=== PATIENT | female | born 1935 ===

== ENCOUNTER 2017-12-12 07:49 | Emergency (ER) | payer MEDICARE ==
[2017-12-12 07:54] VITALS: BP 157/54; PULSE 73; RESP 17; TEMP 98.7; O2SAT 96
[2017-12-12] MEDS ORDERED: Acetaminophen-Codeine 300/30 mg Tab PO STA (08:29)
--- NOTE | 2017-12-12 08:41 | ED PDOC ---
Lower Extremity Pain/Injury Time Seen by Provider: 12/12/17 08:04 Chief Complaint (Nursing): Lower Extremity Problem/Injury Chief Complaint (Provider): Right leg injury History Per: Patient History/Exam Limitations: no limitations Onset/Duration Of Symptoms: Days (7 days ago) Current Symptoms Are (Timing): Still Present Additional Complaint(s): 82 y/o female with a history of hypertension and high cholesterol, presents to the ED following a right knee and ankle pain, onset of 2 days ago. Patient reports of jumping out of a stationary vehicle and twisted her ankle, roughly a week ago. She states that she is able to ambulate with pain and that she took a 400mg Ibuprofen yesterday w/o relief. Past Medical History Reviewed: Historical Data, Nursing Documentation, Vital Signs Vital Signs: Last Vital Signs Temp 98.7 F 12/12/17 07:53 Pulse 73 12/12/17 07:53 Resp 17 12/12/17 07:53 BP 157/54 H 12/12/17 07:53 Pulse Ox 96 12/12/17 07:53 - Medical History PMH: Bronchitis (frequent episodes), HTN, Hypercholesterolemia - Surgical History Surgical History: Cholecystectomy, Hernia Repair - Family History Family History: States: Unknown Family Hx - Social History Current smoker - smoking cessation education provided: No Ex-Smoker (has not smoked in the last 12 months): No Alcohol: None Drugs: Denies - Immunization History Hx Tetanus Toxoid Vaccination: No Hx Influenza Vaccination: No Hx Pneumococcal Vaccination: No - Home Medications Home Medications: Ambulatory Orders Medication Instructions Recorded Albuterol 0.5% [Albuterol 0.5% 3 ml IH Q4 PRN #0 neb 01/30/15 Inhal Tessie (2.5 mg/0.5 ml) UD] Amoxicillin/Clavulanate [Augmentin 1 tab PO BID #20 tab 01/30/15 875 MG-125 MG] Benzonatate [Tessalon Perles] 100 mg PO Q8 PRN #30 sgl 01/30/15 Amoxicillin/Clavulanate Pota 1 tab PO BID #14 tab 09/30/15 [Augmentin 875 mg-125 mg] Neomycin/Polymyxin/Dexamethaso 1 ml LEFTEYE Q4 #1 bottle 09/30/15 [Dexamethasone/Neomycin/Polymyxin 5 Ml] Famotidine [Pepcid] 20 mg PO DAILY #5 tab 04/26/16 Methylprednisolone [Medrol] 4 mg PO TITR #1 unit 04/26/16 Atropine/Diphenoxylate [Lonox 2 tab PO TID PRN #30 tab 12/11/16 0.025 MG-2.5 MG] Dicyclomine [Bentyl] 20 mg PO BID PRN #30 tab 12/11/16 Saccharomyces Boulardi [Florastor] 500 mg PO BID #28 cap 12/11/16 Ibuprofen [Motrin] 600 mg PO Q6H PRN #20 tab 12/12/17 - Allergies Allergies/Adverse Reactions: Allergies Allergy/AdvReac Type Severity Reaction Status Date / Time No Known Allergies Allergy Verified 01/30/15 12:11 Review of Systems ROS Statement: Except As Marked, All Systems Reviewed And Found Negative Constitutional: Negative for: Fever Musculoskeletal: Positive for: Leg Pain (right knee and right ankle pain) Physical Exam - Reviewed Nursing Documentation Reviewed: Yes Vital Signs Reviewed: Yes - Physical Exam Appears: Positive for: Non-toxic, No Acute Distress Head Exam: Positive for: ATRAUMATIC Skin: Positive for: Normal Color, Warm Eye Exam: Positive for: Normal appearance ENT: Positive for: Normal ENT Inspection Neck: Positive for: Normal Cardiovascular/Chest: Positive for: Regular Rate, Rhythm. Negative for: Murmur Respiratory: Positive for: Normal Breath Sounds. Negative for: Respiratory Distress Pulses-Dorsalis Pedis (L): 2+ Pulses-Dorsalis Pedis (R): 2+ Back: Positive for: Normal Inspection Extremity: Positive for: Tenderness (to right popliteal fossa and right anterior ankle), Other (sensation intact; ms 5/5). Negative for: Normal ROM ( decrease rom at knee secondary to apin), Pedal Edema (appreciable edema) Neurologic/Psych: Positive for: Alert, Oriented. Negative for: Motor/Sensory Deficits - ECG O2 Sat by Pulse Oximetry: 96 (RA) Pulse Ox Interpretation: Normal Medical Decision Making Medical Decision Making: Time: --08:28 Impression: --Right Leg injury Plan: --MRI lower ext any joint rt --Acetaminophen/ Codeine 1 tab pO Reassess --09:49 --PROCEDURE: MRI Right Knee FINDINGS: ANTERIOR CRUCIATE LIGAMENT:: Subtotal ACL tear with minimal residual ligament noted anteriorly. This may be a chronic finding. POSTERIOR CRUCIATE LIGAMENT:: Intact. MEDIAL MENISCUS:: Degenerative intrameniscal signal change identified in the body of the medial meniscus. The body medial meniscus has also migrated medially with large osteophytes. LATERAL MENISCUS:: Gross deformity is identified including minimal residual body, posterior margins anterior horn, and anterolateral margins of the posterior horn suggest longstanding postoperative change or gross, chronic tear and degenerative loss of the body of the lateral meniscus MEDIAL COLLATERAL LIGAMENT:: No acute tear identified. LATERAL COLLATERAL LIGAMENT COMPLEX:: Sprain or partial tear medial fibers medial collateral ligament complex. QUADRICEPS TENDON:: No acute tear identified. PATELLAR TENDON:: No acute tear identified. CARTILAGE:: Advanced chondromalacia in all 3 joint compartments compatible with advanced osteoarthritis. JOINT FLUID:: Limited joint effusions seen medially and laterally as well as minimally at the suprapatellar bursa. OSSEOUS STRUCTURES:: Tricompartmental osteophytic derangement but particularly at the lateral femorotibial compartment. No fracture or bone contusion appreciated. OTHER FINDINGS: A small lateral popliteal cyst cysts is appreciate with localized patchy fluid suggestive of partial rupture. IMPRESSION: 1. Subtotal ACL tear, potentially chronic. 2. Partial tear or prominent sprain lateral collateral ligament complex. 3. Advanced osteoarthritis, tricompartmental. 4. Partial rupture of small popliteal cyst at the lateral popliteal fossa. --11:50 PROCEDURE: MRI Right Ankle FINDINGS: ANTERIOR EXTENSOR TENDONS: No definite acute tear.. MEDIAL FLEXOR TENDONS: No definite acute tear. Limited tenosynovitis is suspected involving the flexor hallucis longus tendon. PERONEAL TENDONS: No definite acute tear. ANTERIOR INFERIOR TIBIOFIBULAR (SYNDESMOSIS): Intact.. POSTERIOR INFERIOR TIBIOFIBULAR (SYNDESMOSIS): Intact. ANTERIOR TALOFIBULAR LIGAMENT: Intact. POSTERIOR TALOFIBULAR LIGAMENT: Intact. PLANTAR FASCIA: No acute reactive changes are appreciated with to the plantar fascia however appears thickened posteriorly which could reflect an element of plantar fasciitis. Clinically correlate further. SINUS TARSI: Normal. ACHILLES TENDON: Normal intrinsic signal is seen throughout the Achilles tendon. Trace fluid is seen in the fat anterior to the tendon which is of uncertain origin/ significance. DELTOID LIGAMENT COMPLEX - DEEP: Intact without acute tear.. CALCANEOFIBULAR LIGAMENT: Intact acute tear.. SPRING (PLANTAR CALCANEO-NAVICULAR) LIGAMENT: Intact without acute tear. BONES: Normal marrow signal. CARTILAGE: There is prominent chondromalacia seen involving oral midfoot and hindfoot joints as well as cortical sclerosis and occasional osteophytosis.. JOINT FLUID: Limited fluid is seen posterior to the talocalcaneal joint. MUSCLES: Normal. OTHER FINDINGS: None . IMPRESSION: 1. Mild tenosynovitis flexor hallucis longus tendon. 2. Moderate multifocal degenerative joint disease throughout the midfoot hindfoot and ankle joints. 3. Potential plantar fasciitis. --12:25 copy of imaging report has been given to the patient. --12:32 Patient reports of improvements of symptoms and is stable for discharge home. Knee immobilizer placed. Copy of imaging report given to patient. Scribe Attestation: Documented by Luis Fernando Montiel acting as a scribe for Karina Woodson MD. Disposition - Clinical Impression Clinical Impression: ACL tear, Tear of lateral collateral ligament of right knee - Disposition Referrals: Ruel Oliva III, MD [Staff Provider] - Jaron Thompson MD [Primary Care Provider] - Disposition: Routine/Home Disposition Time: 12:32 Condition: STABLE Prescriptions: Ibuprofen [Motrin] 600 mg PO Q6H PRN #20 tab PRN Reason: Pain, Moderate (4-7) Instructions: Knee Sprain (ED), ACL Injury (ED), Knee Immobilizer (ED) Forms: [employer] (Malawian) Print Language: TAMAZIGHT
--- NOTE | 2017-12-12 09:51 | MRI ---
PROCEDURE: MRI Right Knee HISTORY: Pain. COMPARISON: None available. TECHNIQUE: Multiecho multiplanar sequences were performed through the left knee. FINDINGS: ANTERIOR CRUCIATE LIGAMENT:: Subtotal ACL tear with minimal residual ligament noted anteriorly. This may be a chronic finding. POSTERIOR CRUCIATE LIGAMENT:: Intact. MEDIAL MENISCUS:: Degenerative intrameniscal signal change identified in the body of the medial meniscus. The body medial meniscus has also migrated medially with large osteophytes. LATERAL MENISCUS:: Gross deformity is identified including minimal residual body, posterior margins anterior horn, and anterolateral margins of the posterior horn suggest longstanding postoperative change or gross, chronic tear and degenerative loss of the body of the lateral meniscus MEDIAL COLLATERAL LIGAMENT:: No acute tear identified. LATERAL COLLATERAL LIGAMENT COMPLEX:: Sprain or partial tear medial fibers medial collateral ligament complex. QUADRICEPS TENDON:: No acute tear identified. PATELLAR TENDON:: No acute tear identified. CARTILAGE:: Advanced chondromalacia in all 3 joint compartments compatible with advanced osteoarthritis. JOINT FLUID:: Limited joint effusions seen medially and laterally as well as minimally at the suprapatellar bursa. OSSEOUS STRUCTURES:: Tricompartmental osteophytic derangement but particularly at the lateral femorotibial compartment. No fracture or bone contusion appreciated. OTHER FINDINGS: A small lateral popliteal cyst cysts is appreciate with localized patchy fluid suggestive of partial rupture. IMPRESSION: 1. Subtotal ACL tear, potentially chronic. 2. Partial tear or prominent sprain lateral collateral ligament complex. 3. Advanced osteoarthritis, tricompartmental. 4. Partial rupture of small popliteal cyst at the lateral popliteal fossa.
--- NOTE | 2017-12-12 11:51 | MRI ---
PROCEDURE: MRI Right Ankle HISTORY: Pain. COMPARISON: None available. TECHNIQUE: Multiecho multiplanar sequences were performed through the right ankle without the use of intravenous contrast. FINDINGS: ANTERIOR EXTENSOR TENDONS: No definite acute tear.. MEDIAL FLEXOR TENDONS: No definite acute tear. Limited tenosynovitis is suspected involving the flexor hallucis longus tendon. PERONEAL TENDONS: No definite acute tear. ANTERIOR INFERIOR TIBIOFIBULAR (SYNDESMOSIS): Intact.. POSTERIOR INFERIOR TIBIOFIBULAR (SYNDESMOSIS): Intact. ANTERIOR TALOFIBULAR LIGAMENT: Intact. POSTERIOR TALOFIBULAR LIGAMENT: Intact. PLANTAR FASCIA: No acute reactive changes are appreciated with to the plantar fascia however appears thickened posteriorly which could reflect an element of plantar fasciitis. Clinically correlate further. SINUS TARSI: Normal. ACHILLES TENDON: Normal intrinsic signal is seen throughout the Achilles tendon. Trace fluid is seen in the fat anterior to the tendon which is of uncertain origin/significance. DELTOID LIGAMENT COMPLEX - DEEP: Intact without acute tear.. CALCANEOFIBULAR LIGAMENT: Intact acute tear.. SPRING (PLANTAR CALCANEO-NAVICULAR) LIGAMENT: Intact without acute tear. BONES: Normal marrow signal. CARTILAGE: There is prominent chondromalacia seen involving oral midfoot and hindfoot joints as well as cortical sclerosis and occasional osteophytosis.. JOINT FLUID: Limited fluid is seen posterior to the talocalcaneal joint. MUSCLES: Normal. OTHER FINDINGS: None . IMPRESSION: 1. Mild tenosynovitis flexor hallucis longus tendon. 2. Moderate multifocal degenerative joint disease throughout the midfoot hindfoot and ankle joints. 3. Potential plantar fasciitis. .
--- NOTE | 2017-12-12 12:17 | US ---
PROCEDURE: Right lower extremity venous duplex Doppler. HISTORY: RLE pain/swelling COMPARISON: None available. TECHNIQUE: Common femoral, superficial femoral, popliteal and posterior tibial veins were evaluated. Flow was assessed with color Doppler, compressibility, assessment of phasic flow and augmentation response. FINDINGS: COMMON FEMORAL VEIN: Unremarkable. SUPERFICIAL FEMORAL VEIN: Unremarkable. POPLITEAL VEIN: Unremarkable. POSTERIOR TIBIAL VEIN: Unremarkable. OTHER FINDINGS: None. IMPRESSION: No evidence of deep venous thrombosis in the right lower extremity.
== END 2017-12-12 12:40 | disposition home or self-care (01) ==
LOC: SUPCPDRO 07:49 → H.ER 07:49
DX: S83.511A Sprain of anterior cruciate ligament of right knee, initial encounter (principal); W19.XXXA Unspecified fall, initial encounter; Y92.89 Other specified places as the place of occurrence of the external cause; E78.00 Pure hypercholesterolemia, unspecified; I10 Essential (primary) hypertension; M19.071 Primary osteoarthritis, right ankle and foot; M65.9 Synovitis and tenosynovitis, unspecified

== ENCOUNTER 2018-04-26 12:20 | Emergency (ER) | payer MEDICARE ==
[2018-04-26 12:42] VITALS: O2SAT 96
[2018-04-26] MEDS ORDERED: Albuterol 0.083% Inhal Sol (2.5 mg/3 mL) UD INH ONE (13:53)
[2018-04-26] MEDS ORDERED: Albuterol 0.083% Inhal Sol (2.5 mg/3 mL) UD ONE (14:06)
--- NOTE | 2018-04-26 14:09 | ED PDOC ---
HPI: CCC, URI, Sore Throat Time Seen by Provider: 04/26/18 13:00 Chief Complaint (Nursing): Cough, Cold, Congestion Chief Complaint (Provider): Cough, sore throat History Per: Patient History/Exam Limitations: no limitations Have you had recent travel within the past 21 days to any of the following countries: [place], [place], [place] or [place]?: No Onset/Duration Of Symptoms: Days (5) Current Symptoms Are (Timing): Still Present Associated Symptoms: Sore Throat, Cough, Sputum. denies: Fever, Chills, Vomiting Additional History Per: Patient Additional Complaint(s): 82yo female with history of bronchitis, seasonal allergies, presents to ER for evaluation of a cough for the past 5 days. She reports a productive cough with yellow/green sputum; also reports a mild sore throat. She denies any fever, chills, chest pain, shortness of breath, post-tussive vomiting. She offers no other medical complaints. PMD: Jaron Thompson Past Medical History Reviewed: Historical Data, Nursing Documentation, Vital Signs Vital Signs: Last Vital Signs Temp 99.6 F 04/26/18 16:11 Pulse 79 04/26/18 16:11 Resp 18 04/26/18 16:11 BP 137/56 L 04/26/18 16:11 Pulse Ox 96 04/26/18 16:11 - Medical History PMH: Bronchitis (frequent episodes), HTN, Hypercholesterolemia - Surgical History Surgical History: Cholecystectomy, Hernia Repair - Family History Family History: States: No Known Family Hx, Unknown Family Hx - Social History Current smoker - smoking cessation education provided: No Ex-Smoker (has not smoked in the last 12 months): No Alcohol: None Drugs: Denies - Immunization History Hx Tetanus Toxoid Vaccination: No Hx Influenza Vaccination: No Hx Pneumococcal Vaccination: No - Home Medications Home Medications: Ambulatory Orders Medication Instructions Recorded Albuterol HFA [Ventolin HFA 90 1 - 2 puff IH Q4H PRN #1 bottle 04/26/18 mcg/actuation (8 g)] Azithromycin [Zithromax] 250 mg PO DAILY #6 tab 04/26/18 - Allergies Allergies/Adverse Reactions: Allergies Allergy/AdvReac Type Severity Reaction Status Date / Time No Known Allergies Allergy Verified 04/26/18 12:38 Review of Systems ROS Statement: Except As Marked, All Systems Reviewed And Found Negative Constitutional: Negative for: Fever, Chills Cardiovascular: Negative for: Chest Pain Respiratory: Positive for: Cough, Sputum. Negative for: Shortness of Breath Gastrointestinal: Negative for: Vomiting Physical Exam - Reviewed Nursing Documentation Reviewed: Yes Vital Signs Reviewed: Yes - Physical Exam Appears: Positive for: Non-toxic (no respiratory distress. speaking in full sentences. airway intact.), No Acute Distress Head Exam: Positive for: ATRAUMATIC, NORMAL INSPECTION, NORMOCEPHALIC Skin: Positive for: Normal Color Eye Exam: Positive for: Normal appearance ENT: Positive for: Other (moist mucosa). Negative for: Pharyngeal Erythema, Tonsillar Exudate, Tonsillar Swelling Neck: Positive for: Normal, Supple Cardiovascular/Chest: Positive for: Regular Rate, Rhythm Respiratory: Positive for: Normal Breath Sounds. Negative for: Rales, Rhonchi, Wheezing Gastrointestinal/Abdominal: Positive for: Soft. Negative for: Tenderness Extremity: Negative for: Pedal Edema Neurologic/Psych: Positive for: Alert, Oriented. Negative for: Motor/Sensory Deficits - Laboratory Results Result Diagrams: 04/26/18 14:06 04/26/18 14:06 - ECG O2 Sat by Pulse Oximetry: 96 (RA) Pulse Ox Interpretation: Normal Medical Decision Making Medical Decision Making: Impression: Cough rule out pneumonia Plan: -- CXR -- Labs -- Albuterol 2.5mg INH -- Rapid Strep Time: 1517 CXR FINDINGS: LUNGS: Interval aeration is improved at the bilateral bases. No active pulmonary disease. PLEURA: No significant pleural effusion identified. No pneumothorax apparent. CARDIOVASCULAR: Normal. OSSEOUS STRUCTURES: Old healed rib fractures reiterated at the mid to inferior right ribs laterally. VISUALIZED UPPER ABDOMEN: Normal. OTHER FINDINGS: None. IMPRESSION: No interval acute cardiopulmonary disease appreciable this time. Multiple old healed fractures reiterated right mid to inferior chest Time: 1540 Labs reviewed and shows mildly elevated WBC. Rapid strep test negative. Patient reports feeling better after the albuterol treatment. Patient to be discharge home with prescription for ZPack, albuterol and instructed to follow up with her PMD in 2-3 days. pts oxygen sat is good and she feels well in no respiratory distress. Scribe Attestation: Documented by Nicki Neal, acting as a scribe for Vanesa Hsieh MD. Provider Attestation: All medical record entries made by the Scribe were at my direction and personally dictated by me. I have reviewed the chart and agree that the record accurately reflects my personal performance of the history, physical exam, medical decision making, and the department course for this patient. I have also personally directed, reviewed, and agree with the discharge instructions and disposition. Disposition - Clinical Impression Clinical Impression: Chronic cough - Patient ED Disposition Is Patient to be Admitted: No Counseled Patient/Family Regarding: Studies Performed, Diagnosis, Need For Followup, Rx Given - Disposition Referrals: [facility] [Outside] [facility] [Outside] Disposition: Routine/Home Disposition Time: 15:25 Condition: IMPROVED Additional Instructions: follow up with your primary doctor in 1-2 days for reevaluation return to the ED with any worsening or concerning symptoms such as shortness of breath or chest pain Prescriptions: Albuterol HFA [Ventolin HFA 90 mcg/actuation (8 g)] 1 - 2 puff IH Q4H PRN #1 bottle PRN Reason: Wheezing Azithromycin [Zithromax] 250 mg PO DAILY #6 tab Instructions: Acute Bronchitis, Adult (DC) Forms: [employer] ([place]er)
[2018-04-26 14:13] LABS: BASO # 0.1 K/uL (0.0-0.2); BASO % 0.9 % (0.0-2.0); EOS # 0.4 K/uL (0.0-0.7); EOS % 2.8 % (0.0-4.0); HEMOGLOBIN 11.9 g/dL (12.0-16.0); LYMPH # 1.8 K/uL (1.0-4.3); LYMPH % 13.2 % (20.0-40.0); MEAN CELL VOLUME 80.8 fl (81.0-99.0); MEAN CORPUSCULAR HEMOGLOBIN 27.8 pg (27.0-31.0); MEAN CORPUSCULAR HGB CONC 34.4 g/dL (33.0-37.0); MEAN PLATELET VOLUME 9.1 fl (7.2-11.7); MONO # 1.1 K/uL (0.0-0.8); MONO % 8.6 % (0.0-10.0); NEUT # 9.9 K/uL (1.8-7.0); NEUT % 74.5 % (50.0-75.0); NRBC % 0.2 % (0.0-0.0); RBC 4.27 Mil/uL (3.80-5.20); RED CELL DISTRIBUTION WIDTH 13.9 % (11.5-14.5); WHITE BLOOD COUNT 13.3 K/uL (4.8-10.8)
[2018-04-26 14:23] LABS: ALB/GLOB RATIO 1.1 (1.0-2.1); ALBUMIN 3.8 g/dL (3.5-5.0); ALT/SGPT 23 U/L (9-52); AST/SGOT 17 U/L (14-36); BLOOD UREA NITROGEN 18 mg/dl (7-17); CALCIUM 9.2 mg/dL (8.4-10.2); GFR AFRICAN-AMERICAN > 60; GFR NON-AFRICAN AMERICAN > 60
--- NOTE | 2018-04-26 15:19 | RAD ---
HISTORY: cough COMPARISON: No prior. TECHNIQUE: Chest PA and lateral FINDINGS: LUNGS: Interval aeration is improved at the bilateral bases. No active pulmonary disease. PLEURA: No significant pleural effusion identified. No pneumothorax apparent. CARDIOVASCULAR: Normal. OSSEOUS STRUCTURES: Old healed rib fractures reiterated at the mid to inferior right ribs laterally. VISUALIZED UPPER ABDOMEN: Normal. OTHER FINDINGS: None. IMPRESSION: No interval acute cardiopulmonary disease appreciable this time. Multiple old healed fractures reiterated right mid to inferior chest
[2018-04-26 16:12] VITALS: BP 137/56; PULSE 79; RESP 18; TEMP 99.6
== END 2018-04-26 16:24 | disposition home or self-care (01) ==
LOC: H.ER 12:20
DX: R05 Cough (principal); I10 Essential (primary) hypertension; Z87.891 Personal history of nicotine dependence; E78.00 Pure hypercholesterolemia, unspecified

== ENCOUNTER 2019-01-12 10:25 | Emergency (ER) | payer MEDICARE ==
[2019-01-12 10:31] VITALS: BMI 30.2
--- NOTE | 2019-01-12 11:31 | ED PDOC ---
Lower Extremity Pain/Injury Time Seen by Provider: 01/12/19 10:55 Chief Complaint (Nursing): Lower Extremity Problem/Injury History Per: Patient Additional Complaint(s): Pt. states for the past 3 days she's had atraumatic R heel pain. States the few days prior to the onset of pain she walked more than usual. Pt. reports that she is an avid walker and walks approximately 1 mile/day. Denies fever, trauma, rash, hx of DM, ulcers, numbness, tingling. Past Medical History Reviewed: Historical Data, Nursing Documentation, Vital Signs Vital Signs: Last Vital Signs Temp 98.4 F 01/12/19 10:32 Pulse 77 01/12/19 10:32 Resp 20 01/12/19 10:32 BP 165/75 H 01/12/19 10:32 Pulse Ox 97 01/12/19 10:32 - Medical History PMH: Bronchitis (frequent episodes), HTN, Hypercholesterolemia - Surgical History Surgical History: Cholecystectomy, Hernia Repair - Family History Family History: States: No Known Family Hx - Immunization History Hx Tetanus Toxoid Vaccination: No Hx Influenza Vaccination: No Hx Pneumococcal Vaccination: No - Home Medications Home Medications: Ambulatory Orders Medication Instructions Recorded Meloxicam [Mobic] 7.5 mg PO DAILY PRN #7 tab 01/12/19 - Allergies Allergies/Adverse Reactions: Allergies Allergy/AdvReac Type Severity Reaction Status Date / Time No Known Allergies Allergy Verified 04/26/18 12:38 Review of Systems ROS Statement: Except As Marked, All Systems Reviewed And Found Negative Musculoskeletal: Positive for: Foot Pain Physical Exam - Physical Exam Appears: Positive for: Well, Non-toxic, No Acute Distress Skin: Positive for: Normal Color, Warm. Negative for: Rash Eye Exam: Positive for: Normal appearance Pulses-Dorsalis Pedis (L): 2+ Pulses-Dorsalis Pedis (R): 2+ Extremity: Positive for: Other (R heel with mild tenderness and swelling without deformity, warmth, erythema, or lesions). Negative for: Calf Tenderness (b/l) Neurologic/Psych: Positive for: Alert, Oriented (x3) - ECG O2 Sat by Pulse Oximetry: 97 - Progress ED Course And Treament: R foot x-ray ordered. Offered pain meds but refused. Informed of x-ray results and advised to f/u with podiatry clinic. Also told to take Mobic PRN pain on a full stomach. Disposition - Clinical Impression Clinical Impression: Heel spur - Patient ED Disposition Is Patient to be Admitted: No - Disposition Referrals: Podiatry Clinic [Outside] Disposition: Routine/Home Disposition Time: 11:15 Condition: STABLE Additional Instructions: FOLLOW UP WITH [employer] APPLICATION DEV SPECIALIST FOR FURTHER EVALUATION RETURN TO ED IMMEDIATELY IF SYMPTOMS WORSEN BRETTTHERESE BUTTERFIELDO, thank you for letting us take care of you today. Your provider was Vanesa Hsieh MD and you were treated for RT LEG SWELLING. The emergency medical care you received today was directed at your acute symptoms. If you were prescribed any medication, please fill it and take as directed. It may take several days for your symptoms to resolve. Return to the Emergency Department if your symptoms worsen, do not improve, or if you have any other problems. Please contact your doctor or call one of the physicians/clinics you have been referred to that are listed on the Patient Visit Information form that is included in your discharge packet. Bring any paperwork you were given at discharge with you along with any medications you are taking to your follow up visit. Our treatment cannot replace ongoing medical care by a primary care provider outside of the emergency department. Thank you for allowing the [facility] team to be part of your care today. If you had an X-Ray or CT scan: A Radiologist will review the ED reading if any change in treatment is needed we will contact you. If you had a blood, urine, or wound culture: It will take several days for the results, if any change in treatment is needed we will contact you. If you had an STI test: It will take 48 hours for the results. Please call after 1 week if you have not heard back. Prescriptions: Meloxicam [Mobic] 7.5 mg PO DAILY PRN #7 tab PRN Reason: Pain Instructions: Heel Spurs (DC) Forms: [employer] ([place]ian)
[2019-01-12 11:43] VITALS: BP 150/70; PULSE 70; RESP 19; TEMP 97.6
[2019-01-12 12:01] VITALS: O2SAT 97
--- NOTE | 2019-01-12 13:14 | RAD ---
Date of service: 01/12/2019 PROCEDURE: Right Foot Radiographs. HISTORY: pain COMPARISON: None. FINDINGS: BONES: No acute fracture. Plantar calcaneal spur noted. JOINTS: Normal. SOFT TISSUES: Normal. OTHER FINDINGS: None. IMPRESSION: Plantar calcaneal spur. Otherwise unremarkable.
== END 2019-01-12 11:54 | disposition home or self-care (01) ==
LOC: H.ER 10:25
DX: M77.31 Calcaneal spur, right foot (principal)